=== PATIENT | male | born 1985 | race Caucasian/White ===

== ENCOUNTER 2021-10-09 18:02 | Observation (INO) ==
[2021-10-09] MEDS ORDERED: Ondansetron 4 MG/2 ML VIAL IVP PRN (20:56)
[2021-10-09] MEDS ORDERED: Melatonin 3 MG TABLET PO PRN (20:56)
[2021-10-09] MEDS ORDERED: Naloxone 0.4 MG/ML INJ IVP PRN (20:56)
[2021-10-09] MEDS: 0.9 % Sodium Chloride 1,000 ML IVC SCH (22:09)
[2021-10-10 01:50] LABS: Basophils % 0.3 %; Eosinophils % 0.5 %; Hematocrit 35.1 % (37.5-50.1); Immature Granulocytes % 0.2 % (0-4); Lymphocytes # 1.1 K/mcL (0.6-4.6); Lymphocytes % 19.9 %; Mean Corpuscular HGB Conc 34.2 g/dL (31.6-35.5); Mean Corpuscular Hemoglobin 33.3 pg (28.0-33.3); Mean Corpuscular Volume 97.5 fL (83.0-100.0); Monocytes # 0.5 K/mcL (0.0-1.3); Monocytes % 8.9 %; Platelet Count 185 K/mcL (140-400); Red Cell Distribution Width 10.9 % (11.5-14.5); Segmented Neutrophils % 70.2 %; White Blood Count 5.7 K/mcL (4.3-11.1)
[2021-10-10 02:10] LABS: Albumin 3.7 g/dL (3.5-5.7); Albumin/Globulin Ratio 1.5 (1.1-2.2); Bilirubin,Total 0.6 mg/dL (0.3-1.0); Calcium 8.2 mg/dL (8.6-10.3); Globulin 2.4 g/dL (2.4-3.5); Phosphorous 2.8 mg/dL (2.7-4.5); Potassium 3.3 mEq/L (3.5-5.1); Total Protein 6.1 g/dL (6.4-8.9)
[2021-10-10] MEDS: 0.9 % Sodium Chloride 1,000 ML IVC SCH ×3 (06:15→23:04)
[2021-10-10] MEDS ORDERED: *HR* FentaNYL (PF) 100 MCG/2 ML VIAL ONE (08:26)
[2021-10-10] MEDS ORDERED: Ondansetron 4 MG/2 ML VIAL ONE (08:27)
[2021-10-10] MEDS ORDERED: Lidocaine -MPF 2% 2 ML VIAL ONE (08:27)
[2021-10-10] MEDS ORDERED: *HR* Midazolam HCl 2 MG/2 ML VIAL ONE (08:27)
[2021-10-10] MEDS ORDERED: *HR* Propofol 200 MG/20 ML VIAL IVP ONE (08:27)
[2021-10-10] MEDS ORDERED: Ondansetron 4 MG/2 ML VIAL IVP PRN ×2 (08:38→11:00)
[2021-10-10] MEDS ORDERED: *HR* FentaNYL (PF) 100 MCG/2 ML VIAL IVP PRN (08:38)
[2021-10-10] MEDS ORDERED: Albuterol 2.5 MG/3 ML NEBULIZER IH PRN (08:38)
[2021-10-10] MEDS ORDERED: CeFAZolin Syr 2,000MG/20 ML 2,000 MG/20 ML SYRINGE IVPB ONE (09:19)
[2021-10-10] MEDS ORDERED: Ketorolac 30 MG/ML VIAL ONE (09:52)
[2021-10-10] MEDS ORDERED: Melatonin 3 MG TABLET PO PRN (11:00)
[2021-10-10] MEDS ORDERED: 0.9 % Sodium Chloride 1,000 ML IVC SCH (11:00)
[2021-10-10] MEDS ORDERED: Naloxone 0.4 MG/ML INJ IVP PRN (11:00)
[2021-10-10] MEDS ORDERED: *HR* LORazepam 2 MG/ML VIAL IVP ONE (12:18)
[2021-10-11 01:39] LABS: Basophils % 0.1 %; Hematocrit 36.5 % (37.5-50.1); Hemoglobin 12.4 g/dL (12.9-16.9); Immature Granulocytes % 0.3 % (0-4); Lymphocytes # 0.9 K/mcL (0.6-4.6); Lymphocytes % 13.3 %; Mean Corpuscular Hemoglobin 33.5 pg (28.0-33.3); Mean Corpuscular Volume 98.6 fL (83.0-100.0); Mean Platelet Volume 9.9 fL (9.4-12.4); Monocytes # 0.6 K/mcL (0.0-1.3); Neutrophils # 5.2 K/mcL (1.6-8.9); Platelet Count 214 K/mcL (140-400); Red Cell Distribution Width 11.1 % (11.5-14.5); Segmented Neutrophils % 77.3 %; White Blood Count 6.8 K/mcL (4.3-11.1)
[2021-10-11 01:57] LABS: BUN/Creatinine Ratio 17 (6-26); Blood Urea Nitrogen 17 mg/dL (6-20); Calcium 8.9 mg/dL (8.6-10.3); Carbon Dioxide 26 mEq/L (23-29); Chloride 104 mEq/L (98-107); Glucose 108 mg/dL (70-105); Osmolality,Calculated 288 (280-300); Potassium 3.8 mEq/L (3.5-5.1); Sodium 138 mEq/L (136-145); eGFR For African Americans > 60 (> 60); eGFR For Non-African Americans > 60 (> 60)
[2021-10-11 06:38] VITALS: BP 120/78; PULSE 54; TEMP 97.8; O2SAT 96
[2021-10-11] MEDS: 0.9 % Sodium Chloride 1,000 ML IVC SCH (09:12)
== END 2021-10-11 11:29 | disposition home or self-care (01) ==
LOC: 3BNU → SUATTDRO 20:12
PROVIDERS: ADMIT Internal Medicine; ATTEND Registered Nurse